=== PATIENT | male | born 1965 | race Caucasian/White ===

== ENCOUNTER 2016-12-16 18:40 | Inpatient (IN) | payer MEDICAID ==
[~2016-12-16] VITALS: Ht 175.3 cm; Wt 106.6 kg
[2016-12-16 18:53] VITALS: BP_SYST 157
[2016-12-16] MEDS ORDERED: NACL 0.9% 1,000 ML IV ONE (20:00)
[2016-12-16] MEDS ORDERED: PIPERACILLIN/TAZO 3.375 GM in NS 50 ML IV ONE (20:00)
[2016-12-16] MEDS ORDERED: VANCOMYCIN HCL 1,000 MG in NS 250 ML IV ONE (20:00)
[2016-12-16 20:18] LABS: BASOPHILS % (AUTO) 0.4 % (0.0-2.0); EOSINOPHILS # (AUTO) 0.2 K/uL (0.0-0.4); EOSINOPHILS % (AUTO) 1.5 % (0.0-4.0); HEMATOCRIT 45.4 % (36-54); HEMOGLOBIN 14.7 g/dL (14.0-18.0); LYMPHOCYTES # (AUTO) 2.5 K/uL (1.0-5.5); LYMPHOCYTES % (AUTO) 24.7 % (20.5-51.5); MEAN CORPUSCULAR HEMOGLOBIN 28 pg (27-31); MEAN CORPUSCULAR HGB CONC 32 % (32-36); MEAN CORPUSCULAR VOLUME 85 fL (79.0-98.0); MONOCYTES # (AUTO) 0.5 K/uL (0.0-1.0); NEUTROPHILS # (AUTO) 6.9 K/uL (1.8-7.7); NEUTROPHILS % (AUTO) 68.4 % (40.0-70.0); PLATELET COUNT (AUTO) 361 K/uL (130-430); RED BLOOD CELL COUNT(AUTO) 5.36 MIL/uL (4.2-6.2); RED CELL DISTRIBUTION WIDTH 13.3 % (9.0-15.0); WHITE BLOOD COUNT (AUTO) 10.1 K/uL (4.8-10.8)
[2016-12-16 20:21] LABS: CALCIUM 9.8 mg/dL (8.4-11.0); CREATININE 0.89 mg/dL (0.55-1.30)
[2016-12-16 20:24] LABS: PROTHROMBIN TIME 11.1 SECS (9.5-12.5)
[2016-12-16 20:25] LABS: ALBUMIN 3.7 g/dL (3.4-4.8); TOTAL BILIRUBIN 0.4 mg/dL (0.0-1.0)
[2016-12-16] MEDS ORDERED: VANCOMYCIN HCL 1000 MG/VIAL IV ONE (21:02)
[2016-12-16] MEDS ORDERED: PIPERACILLIN/TAZOBACTAM 3.375 GM/VIAL (ZOSYN) IV ONE (21:03)
[2016-12-16] MEDS ORDERED: ACETAMINOPHEN 325 MG TABLET PO PRN (21:30)
[2016-12-16] MEDS ORDERED: ONDANSETRON HCL 4 MG/2 ML VIAL IVP PRN (21:30)
[2016-12-16] MEDS ORDERED: MAGNESIUM SULFATE 50 ML IV PRN (21:30)
[2016-12-16] MEDS ORDERED: MORPHINE 2 MG/ML INJ. SYRINGE IVP PRN ×2 (21:30)
[2016-12-16] MEDS ORDERED: POTASSIUM CHLORIDE 10 MEQ TAB.PRT.SR PO PRN (21:30)
[2016-12-16] MEDS ORDERED: LORazepam 2 MG/ML VIAL IVP PRN (21:30)
[2016-12-16] MEDS ORDERED: DOCUSATE SODIUM 100 MG CAPSULE PO PRN (21:30)
[2016-12-16] MEDS ORDERED: ZOLPIDEM TARTRATE 5 MG TABLET PO PRN (21:30)
[2016-12-16 21:45] VITALS: BP_SYST 142
[2016-12-16] MEDS ORDERED: METOPROLOL TARTRATE 25 MG TABLET PO ONE (22:00)
[2016-12-17] VITALS (7 sets, daily range): BP systolic 137–156
[2016-12-17 07:28] LABS: CREATININE 0.88 mg/dL (0.55-1.30); POTASSIUM 4.3 mmol/L (3.5-5.1)
[2016-12-17 07:31] LABS: BASOPHILS # (AUTO) 0.1 K/uL (0.0-0.2); BASOPHILS % (AUTO) 0.9 % (0.0-2.0); EOSINOPHILS # (AUTO) 0.2 K/uL (0.0-0.4); EOSINOPHILS % (AUTO) 1.9 % (0.0-4.0); HEMATOCRIT 39.2 % (36-54); LYMPHOCYTES # (AUTO) 2.4 K/uL (1.0-5.5); LYMPHOCYTES % (AUTO) 22.5 % (20.5-51.5); MEAN CORPUSCULAR HEMOGLOBIN 28 pg (27-31); MEAN CORPUSCULAR HGB CONC 33 % (32-36); MEAN CORPUSCULAR VOLUME 85 fL (79.0-98.0); MONOCYTES # (AUTO) 0.5 K/uL (0.0-1.0); MONOCYTES % (AUTO) 4.8 % (1.7-9.3); NEUTROPHILS # (AUTO) 7.4 K/uL (1.8-7.7); NEUTROPHILS % (AUTO) 69.9 % (40.0-70.0); PLATELET COUNT (AUTO) 325 K/uL (130-430); RED BLOOD CELL COUNT(AUTO) 4.61 MIL/uL (4.2-6.2); RED CELL DISTRIBUTION WIDTH 12.9 % (9.0-15.0); WHITE BLOOD COUNT (AUTO) 10.6 K/uL (4.8-10.8)
[2016-12-17] MEDS: METOPROLOL TARTRATE 25 MG TABLET PO SCH ×2 (09:11→21:23)
[2016-12-17] MEDS: HEPARIN SODIUM,PORCINE 5000 UNITS/ML VIAL SUBCUT SCH ×2 (09:12→21:24)
[2016-12-17] MEDS: VANCOMYCIN HCL 1,000 MG in NS 250 ML IV SCH ×2 (10:20→17:20)
[2016-12-17] MEDS: ceFAZolin SODIUM 1 GM in D5W 50 ML IV SCH ×3 (10:20→21:43)
[2016-12-18] MEDS: VANCOMYCIN HCL 1,000 MG in NS 250 ML IV SCH ×3 (01:29→17:21)
[2016-12-18] MEDS: ceFAZolin SODIUM 1 GM in D5W 50 ML IV SCH ×3 (05:22→21:52)
[2016-12-18 07:48] LABS: BASOPHILS % (AUTO) 0.3 % (0.0-2.0); EOSINOPHILS # (AUTO) 0.1 K/uL (0.0-0.4); EOSINOPHILS % (AUTO) 1.5 % (0.0-4.0); HEMOGLOBIN 14.5 g/dL (14.0-18.0); LYMPHOCYTES # (AUTO) 2.4 K/uL (1.0-5.5); LYMPHOCYTES % (AUTO) 23.8 % (20.5-51.5); MEAN CORPUSCULAR HEMOGLOBIN 28 pg (27-31); MEAN CORPUSCULAR HGB CONC 33 % (32-36); MEAN CORPUSCULAR VOLUME 85 fL (79.0-98.0); MONOCYTES # (AUTO) 0.5 K/uL (0.0-1.0); MONOCYTES % (AUTO) 5.4 % (1.7-9.3); NEUTROPHILS # (AUTO) 6.9 K/uL (1.8-7.7); PLATELET COUNT (AUTO) 349 K/uL (130-430); RED BLOOD CELL COUNT(AUTO) 5.19 MIL/uL (4.2-6.2); RED CELL DISTRIBUTION WIDTH 13.1 % (9.0-15.0); WHITE BLOOD COUNT (AUTO) 9.9 K/uL (4.8-10.8)
[2016-12-18 08:07] LABS: CALCIUM 9.7 mg/dL (8.4-11.0); CREATININE 0.9 mg/dL (0.55-1.30); POTASSIUM 4.1 mmol/L (3.5-5.1)
[2016-12-18 08:19] VITALS: BP_SYST 136
[2016-12-18] MEDS: METOPROLOL TARTRATE 25 MG TABLET PO SCH ×2 (08:21→21:44)
[2016-12-18] MEDS: HEPARIN SODIUM,PORCINE 5000 UNITS/ML VIAL SUBCUT SCH ×2 (08:23→21:48)
[2016-12-18 11:32] VITALS: BP_SYST 138
[2016-12-18 15:39] VITALS: BP_SYST 139
[2016-12-18 20:00] VITALS: BP_SYST 125
[2016-12-18 23:46] VITALS: BP_SYST 133
[2016-12-19] MEDS: VANCOMYCIN HCL 1,000 MG in NS 250 ML IV SCH ×2 (01:14→10:39)
[2016-12-19 03:47] VITALS: BP_SYST 131
[2016-12-19] MEDS: ceFAZolin SODIUM 1 GM in D5W 50 ML IV SCH ×3 (05:25→21:27)
[2016-12-19 06:30] LABS: BASOPHILS % (AUTO) 0.4 % (0.0-2.0); EOSINOPHILS # (AUTO) 0.1 K/uL (0.0-0.4); EOSINOPHILS % (AUTO) 1.8 % (0.0-4.0); HEMATOCRIT 43.6 % (36-54); HEMOGLOBIN 14.2 g/dL (14.0-18.0); LYMPHOCYTES # (AUTO) 2.9 K/uL (1.0-5.5); LYMPHOCYTES % (AUTO) 35.8 % (20.5-51.5); MEAN CORPUSCULAR HEMOGLOBIN 28 pg (27-31); MEAN CORPUSCULAR HGB CONC 33 % (32-36); MEAN CORPUSCULAR VOLUME 84 fL (79.0-98.0); MONOCYTES # (AUTO) 0.6 K/uL (0.0-1.0); MONOCYTES % (AUTO) 7.5 % (1.7-9.3); NEUTROPHILS # (AUTO) 4.4 K/uL (1.8-7.7); NEUTROPHILS % (AUTO) 54.5 % (40.0-70.0); PLATELET COUNT (AUTO) 366 K/uL (130-430); RED BLOOD CELL COUNT(AUTO) 5.17 MIL/uL (4.2-6.2); RED CELL DISTRIBUTION WIDTH 13.3 % (9.0-15.0)
[2016-12-19 06:37] LABS: CALCIUM 9.6 mg/dL (8.4-11.0); CREATININE 0.85 mg/dL (0.55-1.30); POTASSIUM 4.1 mmol/L (3.5-5.1)
[2016-12-19] MEDS: METOPROLOL TARTRATE 25 MG TABLET PO SCH ×2 (08:59→21:17)
[2016-12-19] MEDS: HEPARIN SODIUM,PORCINE 5000 UNITS/ML VIAL SUBCUT SCH ×2 (09:01→21:26)
[2016-12-19 12:31] VITALS: BP_SYST 137
[2016-12-19 16:28] VITALS: BP_SYST 151
[2016-12-19] MEDS: VANCOMYCIN HCL 1,500 MG in NS 250 ML IV SCH (18:24)
[2016-12-19 20:00] VITALS: BP_SYST 144
[2016-12-19 22:50] LABS: BILIRUBIN,URINE NEGATIVE (NEGATIVE); BLOOD, URINE NEGATIVE (NEGATIVE); CLARITY/URINE SL HAZY (CLEAR); COLOR,URINE YELLOW (YELLOW); GLUCOSE,URINE NEGATIVE (NEGATIVE); KETONES,URINE NEGATIVE (NEGATIVE); LEUKOCYTE ESTERASE ,URINE NEGATIVE (NEGATIVE); NITRITE, URINE NEGATIVE (NEGATIVE); PH,URINE 7.5 (5.0-8.0); PROTEIN URINE NEGATIVE (NEGATIVE); UROBILINOGEN,URINE 0.2 (0.2-1.0)
[2016-12-20] MEDS: VANCOMYCIN HCL 1,500 MG in NS 250 ML IV SCH ×3 (01:27→18:11)
[2016-12-20 04:54] VITALS: BP_SYST 134
[2016-12-20] MEDS: ceFAZolin SODIUM 1 GM in D5W 50 ML IV SCH ×3 (05:04→21:39)
[2016-12-20 06:39] LABS: BASOPHILS % (AUTO) 0.4 % (0.0-2.0); EOSINOPHILS # (AUTO) 0.2 K/uL (0.0-0.4); EOSINOPHILS % (AUTO) 2.2 % (0.0-4.0); HEMATOCRIT 44.9 % (36-54); HEMOGLOBIN 14.7 g/dL (14.0-18.0); LYMPHOCYTES # (AUTO) 2.3 K/uL (1.0-5.5); LYMPHOCYTES % (AUTO) 28.9 % (20.5-51.5); MEAN CORPUSCULAR HEMOGLOBIN 28 pg (27-31); MEAN CORPUSCULAR HGB CONC 33 % (32-36); MEAN CORPUSCULAR VOLUME 84 fL (79.0-98.0); MONOCYTES # (AUTO) 0.6 K/uL (0.0-1.0); NEUTROPHILS % (AUTO) 61.5 % (40.0-70.0); PLATELET COUNT (AUTO) 381 K/uL (130-430); RED BLOOD CELL COUNT(AUTO) 5.32 MIL/uL (4.2-6.2); RED CELL DISTRIBUTION WIDTH 13.1 % (9.0-15.0); WHITE BLOOD COUNT (AUTO) 8.1 K/uL (4.8-10.8)
[2016-12-20 06:46] LABS: CALCIUM 9.5 mg/dL (8.4-11.0); CREATININE 0.9 mg/dL (0.55-1.30); POTASSIUM 4.1 mmol/L (3.5-5.1)
[2016-12-20 08:05] VITALS: BP_SYST 135
[2016-12-20] MEDS: METOPROLOL TARTRATE 25 MG TABLET PO SCH ×2 (09:00→21:28)
[2016-12-20] MEDS: HEPARIN SODIUM,PORCINE 5000 UNITS/ML VIAL SUBCUT SCH ×2 (09:00→21:00)
[2016-12-20] MEDS ORDERED: METO-442 PO (09:10)
[2016-12-20] MEDS ORDERED: SULF1TAB48 PO (09:11)
[2016-12-20] MEDS ORDERED: METOPROLOL TARTRATE 5 MG/5 ML VIAL IVP ONE (09:45)
[2016-12-20 12:10] VITALS: BP_SYST 132
[2016-12-20] MEDS ORDERED: MEPERIDINE HCL/PF 50 MG/ML AMP IM ONE (14:31)
[2016-12-20] MEDS ORDERED: LR 1,000 ML IV.SOLN IV ONE (14:31)
[2016-12-20] MEDS ORDERED: LABETALOL 100 MG/ 20ML VIAL IVP ONE (14:31)
[2016-12-20] MEDS ORDERED: PROPOFOL 200MG/ 20ML VIAL (DIPRIVAN) IV ONE (14:31)
[2016-12-20] MEDS ORDERED: MIDAZOLAM HCL 5 MG/5 ML VIAL IVP ONE (14:31)
[2016-12-20] MEDS ORDERED: NS IRRIG SOLN 1000 ML IR ONE (14:31)
[2016-12-20] MEDS ORDERED: LR 1,000 ML IV SCH (14:43)
[2016-12-20] MEDS ORDERED: HYDROmorphone 2 MG/ML VIAL IVP PRN (14:45)
[2016-12-20] MEDS ORDERED: ONDANSETRON HCL 4 MG/2 ML VIAL IVP PRN (14:45)
[2016-12-20] MEDS ORDERED: HYDROmorphone 1 MG INJ. 1 MG/ML AMPUL IVP PRN (14:45)
[2016-12-20] MEDS: HYDROmorphone 2 MG/ML VIAL IVP PRN ×2 (15:20→15:25)
[2016-12-20] MEDS ORDERED: HYDROmorphone 2 MG/ML VIAL ONE (15:26)
[2016-12-20 16:00] VITALS: BP_SYST 121
[2016-12-20 18:10] VITALS: BP_SYST 121
[2016-12-20 19:30] VITALS: BP_SYST 118
[2016-12-21 00:41] VITALS: BP_SYST 147
[2016-12-21] MEDS: VANCOMYCIN HCL 1,500 MG in NS 250 ML IV SCH (01:11)
[2016-12-21 04:30] VITALS: BP_SYST 142
[2016-12-21] MEDS: ceFAZolin SODIUM 1 GM in D5W 50 ML IV SCH (05:22)
[2016-12-21 08:07] VITALS: BP_SYST 145
[2016-12-21] MEDS: HEPARIN SODIUM,PORCINE 5000 UNITS/ML VIAL SUBCUT SCH (09:00)
[2016-12-21] MEDS: METOPROLOL TARTRATE 25 MG TABLET PO SCH (09:00)
[2016-12-21 12:06] VITALS: BP_SYST 146
[2016-12-21 12:21] VITALS: BP_SYST 146
== END 2016-12-21 15:45 | disposition home health service (06) | DRG 361 ==
LOC: SED 18:40 → SMU 21:30
PROVIDERS: ADMIT General Practice; ATTEND General Practice
PROC: 0YB90ZZ Excision of Right Lower Extremity, Open Approach (ICD-10-PCS; principal; 2016-12-20 15:30)
DX: L03.115 Cellulitis of right lower limb (principal); E11.622 Type 2 diabetes mellitus with other skin ulcer; L97.919 Non-pressure chronic ulcer of unspecified part of right lower leg with unspecified severity; E66.9 Obesity, unspecified; B95.62 Methicillin resistant Staphylococcus aureus infection as the cause of diseases classified elsewhere; I10 Essential (primary) hypertension; L02.415 Cutaneous abscess of right lower limb; Z68.34 Body mass index [BMI] 34.0-34.9, adult; Z91.19 Patient's noncompliance with other medical treatment and regimen
CPT/HCPCS: 36415; 73590-TC; 73721; 80048; 80053; 80202-TC; 81003; 83605; 83735-TC; 85025; 85610-TC; 85730-TC; 87040-TC; 87070-TC; 87081; 87186-TC; 93923; 93970; 96365; 96368; 99285; J0690; J1170; J1644; J2175; J2250; J2270; J2405; J2543; J2704; J3370; J3490; J7030; J7050; J7060; J7120; Q4116

== ENCOUNTER 2020-03-03 22:19 | Emergency (ER) | payer MEDICAID ==
[~2020-03-03] VITALS: Ht 172.7 cm; Wt 99.8 kg
[~2020-03-03 22:19] MED LIST: METO-442 PO; SULF1TAB48 PO
[2020-03-03] MEDS ORDERED: NACL 0.9% 1,000 ML IV ONE (22:45)
[2020-03-03] MEDS ORDERED: NOREPINEPHRINE BITARTRATE 4 MG in NS 246 ML IV ONE (22:45)
[2020-03-03] MEDS ORDERED: EPINEPHrine JECT 0.1 MG/ML SYR IVP ONE (22:45)
[2020-03-04 00:02] VITALS: BP_SYST 171
--- NOTE | 2020-03-04 02:19 | NUR ---
Patient to ER bed 5.
--- NOTE | 2020-03-04 02:20 | NUR ---
Patient came to ER with family. C/O bilateral leg pain x 1 week. Patient had bilateral lower leg pain with swelling over a week. Hx HTN
--- NOTE | 2020-03-04 02:21 | NUR ---
ER Dr. Joy at bedside examining patient.
[2020-03-04] MEDS ORDERED: BACITRACIN 1 GM OINT TP ONE (02:40)
--- NOTE | 2020-03-04 02:44 | NUR ---
Dressing wound with NSS and Bacitracin and wrap up with Non-Adhesive and A-strap.
[2020-03-04] MEDS ORDERED: cefTRIAXone 1 GM in LIDOCAINE 1%, 20 ML MDV 2.1 ML IM ONE (02:45)
[2020-03-04 03:10] VITALS: BP_SYST 165
--- NOTE | 2020-03-04 03:10 | NUR ---
Patient given written and verbal discharge instructions and verbalizes understanding. ER MD discussed with patient the results and treatment provided. Patient in stable condition. ID arm band removed. Rx of Keflex given. Patient educated on pain management and to follow up with PMD. Pain Scale 4/10. Opportunity for questions provided and answered. Medication side effect fact sheet provided.
== END 2020-03-04 03:10 | disposition home or self-care (01) ==
LOC: SED 22:19
DX: M79.604 Pain in right leg (principal); M79.605 Pain in left leg
CPT/HCPCS: 71045; 96372; 99283; J0696; J2001

== ENCOUNTER 2023-10-15 09:15 | Emergency (ER) | payer MEDICAID ==
[~2023-10-15] VITALS: Ht 175.3 cm; Wt 108.9 kg
[2023-10-15] MEDS ORDERED: LOPE2CAP PO (09:39)
[2023-10-15] MEDS ORDERED: IMO2 PO (09:39)
[2023-10-15 09:47] VITALS: BP_SYST 102; PULSE 85; RESP 18; TEMP 97.4; O2SAT 97
[2023-10-15 09:48] VITALS: BP_SYST 154; PULSE 85; RESP 18; TEMP 97.4; O2SAT 97
== END 2023-10-15 09:47 | disposition home or self-care (01) ==
LOC: SED 09:15
DX: R19.7 Diarrhea, unspecified (principal); Z98.890 Other specified postprocedural states; Z79.899 Other long term (current) drug therapy
CPT/HCPCS: 99282